=== PATIENT | female | born 1960 | race American Indian/Alaskan Native ===

== ENCOUNTER 2019-10-24 08:19 | Outpatient (CLI) | payer OTHER ==
--- NOTE | 2019-10-24 14:42 | Mammography Report ---
DIGITAL SCREENING MAMMOGRAM WITH CAD, 10/24/2019 INDICATION: Routine screening mammography. TECHNIQUE: Digital bilateral 2D mammography was obtained in the craniocaudal and mediolateral obliq ue projections. This examination was interpreted with the benefit of Computer-Aided Detection analysi s. COMPARISON: 04/23/2016 FINDINGS: Breast Density: The breasts are almost entirely fatty. There is no evidence of dominant mass, suspicious calcifications or architectural distortion in eithe r breast. IMPRESSION: No mammographic evidence of malignancy. Follow up recommendation: Routine yearly BI-RADS Category 1: Negative. A "normal" or negative report should not discourage follow up or biopsy of a clinically significant f inding. A written summary of these findings will be mailed to the patient. The patient will be entered into a mammography reporting system which will generate a reminder letter for the patient's next appointmen t at the appropriate interval. The [employer] recommends yearly mammograms starting at age 40 and continuing as l es as a woman is in good health. Breast MRI is recommended for women with an approximate 20-25% or greater lifetime risk of breast cancer, including women with a strong family history of breast or ova luzmaria cancer or who have been treated for Hodgkin's disease. Signer Name: Jake Dawson MD Signed: 10/24/2019 2:38 PM Workstation Name: [id number]
--- NOTE | 2019-10-24 15:22 | XRay Report ---
CHEST 2 VIEWS INDICATION: HISTORY OF POSITIVE PPD. COMPARISON: None available. FINDINGS: Support devices: None. Heart: Within normal limits. Pulmonary vasculature: Normal. Lungs/pleura: No acute air space or interstitial disease. No evidence of acute or chronic TB. No pleu ral effusion. No pneumothorax. Additional findings: Aortic tortuosity. IMPRESSION: 1. No acute findings. 2. No evidence of acute or chronic TB. 3. Hypertensive changes in aorta. Signer Name: Jake Dawson MD Signed: 10/24/2019 3:18 PM Workstation Name: [id number]
== END 2019-10-24 08:20 | disposition home or self-care (01) ==
LOC: MAMMO 08:19
PROVIDERS: ATTEND Internal Medicine
DX: Z12.31 Encounter for screening mammogram for malignant neoplasm of breast (principal); N64.89 Other specified disorders of breast; I77.89 Other specified disorders of arteries and arterioles; Z92.89 Personal history of other medical treatment
CPT/HCPCS: 71046; 77067

== ENCOUNTER 2020-10-30 07:44 | Outpatient (CLI) | payer OTHER ==
--- NOTE | 2020-10-30 09:11 | Mammography Report ---
DIGITAL SCREENING MAMMOGRAM WITH CAD, 10/30/2020 CLINICAL INFORMATION / INDICATION: Routine screening mammography. ROUTINE TECHNIQUE: Digital bilateral 2D mammography was obtained in the craniocaudal and mediolateral obliqu e projections. This examination was interpreted with the benefit of Computer-Aided Detection analysis . COMPARISON: 10/24/2019 FINDINGS: Breast Density: There are scattered areas of fibroglandular density. No dominant mass, suspicious calcifications, or architectural distortion in either breast. IMPRESSION: No mammographic evidence of malignancy. Follow up recommendation: Routine yearly BI-RADS Category 1: Negative. A "normal" or negative report should not discourage follow up or biopsy of a clinically significant f inding. A written summary of these findings will be mailed to the patient. The patient will be entered into a mammography reporting system which will generate a reminder letter for the patient's next appointmen t at the appropriate interval. The [employer] recommends yearly mammograms starting at age 40 and continuing as l es as a woman is in good health. Breast MRI is recommended for women with an approximate 20-25% or greater lifetime risk of breast cancer, including women with a strong family history of breast or ova luzmraia cancer or who have been treated for Hodgkin's disease. Signer Name: Darren Webster MD Signed: 10/30/2020 9:07 AM Workstation Name: [id number]
== END 2020-10-30 07:45 | disposition home or self-care (01) ==
LOC: MAMMO 07:44
PROVIDERS: ATTEND Internal Medicine
DX: Z12.31 Encounter for screening mammogram for malignant neoplasm of breast (principal)
CPT/HCPCS: 77067

== ENCOUNTER 2021-11-29 07:59 | Outpatient (CLI) | payer OTHER ==
--- NOTE | 2021-12-02 12:42 | Mammography Report ---
DIGITAL SCREENING MAMMOGRAM WITH CAD, 11/29/2021 CLINICAL INFORMATION / INDICATION: Routine screening mammography. SCREENING MAMMOGRAM TECHNIQUE: Digital bilateral 2D mammography was obtained in the craniocaudal and mediolateral obliqu e projections. This examination was interpreted with the benefit of Computer-Aided Detection analysis . COMPARISON: 03/22/2014 through 10/30/2020. FINDINGS: Breast Density: The breasts are almost entirely fatty. No dominant mass, suspicious calcifications, or architectural distortion in either breast. Mild asymmetric breast tissue in the right upper outer quadrant is stable. IMPRESSION: No mammographic evidence of malignancy. Follow up recommendation: Routine yearly BI-RADS Category 2: BENIGN. A "normal" or negative report should not discourage follow up or biopsy of a clinically significant f inding. A written summary of these findings will be mailed to the patient. The patient will be entered into a mammography reporting system which will generate a reminder letter for the patient's next appointmen t at the appropriate interval. The [employer] recommends yearly mammograms starting at age 40 and continuing as l es as a woman is in good health. Breast MRI is recommended for women with an approximate 20-25% or greater lifetime risk of breast cancer, including women with a strong family history of breast or ova luzmaria cancer or who have been treated for Hodgkin's disease. Signer Name: Henrry Piedra MD Signed: 12/02/2021 12:37 PM Workstation Name: [id number]
== END 2021-11-29 08:00 | disposition home or self-care (01) ==
LOC: MAMMO 07:59
PROVIDERS: ATTEND Internal Medicine
DX: Z12.31 Encounter for screening mammogram for malignant neoplasm of breast (principal); N64.89 Other specified disorders of breast
CPT/HCPCS: 77067